=== PATIENT | male | born 1960 | race Caucasian/White ===

== ENCOUNTER 2021-10-26 06:27 | Day surgery (SDC) | payer OTHER, MEDICARE ==
[~2021-10-26] VITALS: Ht 167.6 cm; Wt 63.0 kg
[2021-10-26] MEDS ORDERED: PROPOFOL 1% 20 ML VIAL IVP ONE (06:28)
[2021-10-26] MEDS ORDERED: DEXAMETHASONE SOD PHOS 4 MG/ML VIAL IVP ONE (06:28)
[2021-10-26] MEDS ORDERED: LIDOCAINE/PF 2% 5 ML VIAL IM ONE (06:28)
[2021-10-26] MEDS ORDERED: EPHEDrine SULFATE 50 MG/ML VIAL IM ONE (06:28)
[2021-10-26] MEDS ORDERED: 0.9% SODIUM CHLORIDE 10 ML VIAL IVP ONE (06:28)
[2021-10-26] MEDS ORDERED: ROCURONIUM BROMIDE 10 MG/ML 5 ML VIAL IVP ONE (06:28)
[2021-10-26] MEDS ORDERED: FentaNYL CITRATE PF 100 MCG/2 ML VIAL IVP ONE (06:28)
[2021-10-26] MEDS ORDERED: ONDANSETRON HCL 4 MG/2 ML VIAL IVP ONE (06:28)
[2021-10-26] MEDS ORDERED: RINGERS SOLUTION,LACTATED 1,000 ML IV ONE ×2 (06:30→07:38)
[2021-10-26 06:56] LABS: COVID AG,FIA SOURCE NASOPHARYNGEAL
[2021-10-26] MEDS ORDERED: ASPI-1450 PO (07:17)
[2021-10-26] MEDS ORDERED: RIVA20TA PO (07:17)
[2021-10-26] MEDS ORDERED: TRAZ-252 PO (07:17)
[2021-10-26] MEDS ORDERED: FISH1CAP27 PO (07:17)
[2021-10-26] MEDS ORDERED: ACET-2247 PO (07:17)
[2021-10-26] MEDS ORDERED: ATOR10TA84 PO (07:17)
[2021-10-26 07:27] LABS: BASOPHILS % (AUTO) 1.3 % (0.0-2.0); EOSINOPHILS % (AUTO) 2.3 % (1.0-6.0); LYMPHOCYTES # (AUTO) 2.2 K/uL (1.0-4.8); LYMPHOCYTES % (AUTO) 42.3 % (22.0-44.0); MEAN CORPUSCULAR HEMOGLOBIN 32.2 pg (26.0-34.0); MEAN CORPUSCULAR HGB CONC 33.3 G/dL (31.0-37.0); MEAN CORPUSCULAR VOLUME 97 fL (80-100); MONOCYTES # (AUTO) 0.5 K/uL (0.1-1.0); MONOCYTES % (AUTO) 10.1 % (2.0-9.0); NEUTROPHILS # (AUTO) 2.3 K/uL (1.8-7.7); PLATELET COUNT (AUTO) 202 K/uL (150-450); RED BLOOD CELL COUNT(AUTO) 4.64 MIL/uL (4.50-5.90); RED CELL DISTRIBUTION WIDTH 15.3 % (11.5-14.5)
[2021-10-26 07:38] LABS: CALCIUM, TOTAL 9.1 mg/dL (8.8-10.5); CREATININE 1.31 mg/dL (0.60-1.30); POTASSIUM 3.8 mmol/L (3.5-5.1)
[2021-10-26 07:46] LABS: INR 1.2 (0.9-1.1); PROTHROMBIN TIME 12.2 SEC (9.4-11.6)
[2021-10-26] MEDS ORDERED: AMPICILLIN SODIUM 2 GM/NS 100 ML IV ONE (08:44)
[2021-10-26] MEDS ORDERED: HYDROmorphone 2 MG/ML VIAL IVP PRN (09:30)
[2021-10-26] MEDS ORDERED: MEPERIDINE-PF 25 MG/ML VIAL IVP PRN (09:30)
[2021-10-26] MEDS ORDERED: FentaNYL CITRATE PF 100 MCG/2 ML VIAL IVP PRN (09:30)
[2021-10-26] MEDS ORDERED: OXYGEN THERAPY IH SCH (20:00)
== END 2021-10-26 10:50 | disposition home or self-care (01) ==
LOC: SURGERY 06:27
PROVIDERS: ATTEND Dentist General Practice
DX: K02.9 Dental caries, unspecified (principal); K05.30 Chronic periodontitis, unspecified; K03.6 Deposits [accretions] on teeth; Z79.01 Long term (current) use of anticoagulants; Z79.899 Other long term (current) drug therapy; E78.5 Hyperlipidemia, unspecified; I10 Essential (primary) hypertension; F41.9 Anxiety disorder, unspecified; K59.00 Constipation, unspecified; Z98.890 Other specified postprocedural states
CPT/HCPCS: 41899; 71045; 87426; 80048; 85025; 85610; 85730; 36415; 93005; J0290; J2704; J1100; J3490 ×3; J3010; J2405; J7120; C9803